=== PATIENT | female | born 1945 | race Caucasian/White ===

== ENCOUNTER 2023-01-28 05:26 | Day surgery (SDC) | payer OTHER ==
[2023-01-24 11:35] VITALS: BMI 24.6
[2023-01-28] MEDS ORDERED: FENTANYL CITRATE/PF 50 MCG/ML VIAL ONE ×2 (09:20→10:41)
[2023-01-28] MEDS ORDERED: SUCCINYLCHOLINE CHLORIDE 200 MG/10 ML SYRINGE ONE (09:20)
[2023-01-28] MEDS ORDERED: PROPOFOL 40 ML ONE (09:20)
[2023-01-28] MEDS ORDERED: MIDAZOLAM HCL 2 MG/2 ML SINGLE DOSE VIAL ONE (09:21)
[2023-01-28] MEDS ORDERED: LIDOCAINE HCL/PF 2% SDV 5ML VIAL ONE (09:37)
[2023-01-28] MEDS ORDERED: DEXAMETHASONE SOD PHOSPHATE 4 MG/1 ML VIAL ONE (09:37)
[2023-01-28] MEDS ORDERED: ONDANSETRON 4 MG/2 ML VIAL ONE (09:37)
[2023-01-28] MEDS ORDERED: KETOROLAC TROMETHAMINE 30 MG/1 ML VIAL ONE (09:37)
[2023-01-28] MEDS ORDERED: ceFAZolin SODIUM 1 GM VIAL ONE (09:47)
[2023-01-28] MEDS ORDERED: SEVOFLURANE 250 ML BTL ONE ×2 (10:05→10:06)
[2023-01-28] MEDS ORDERED: ACETAMINOPHEN 1000 MG/100 ML BAG IVPB PRN (10:31)
[2023-01-28] MEDS ORDERED: oxyCODONE HCL 5 MG TABLET PO PRN ×2 (10:31)
[2023-01-28] MEDS ORDERED: ONDANSETRON 4 MG/2 ML VIAL IVPUSH PRN (10:31)
[2023-01-28] MEDS ORDERED: PROMETHAZINE HCL 25 MG/1 ML VIAL IVPB PRN (10:31)
[2023-01-28] MEDS ORDERED: LACTATED RINGERS SOLUTION 1,000 ML IV SCH (10:45)
[2023-01-28 12:08] VITALS: RESP 18; TEMP 97
[2023-01-28 13:07] VITALS: BP 136/76
[2023-01-28 13:08] VITALS: PULSE 84
== END 2023-01-28 13:00 | disposition home or self-care (01) ==
LOC: JASU-SURG 05:26
PROVIDERS: ATTEND Obstetrics & Gynecology
PROC: 0UB98ZZ Excision of Uterus, Via Natural or Artificial Opening Endoscopic (ICD-10-PCS; principal; 2023-01-28 09:00)
DX: N95.0 Postmenopausal bleeding (principal); N84.0 Polyp of corpus uteri
CPT/HCPCS: 86850; 86900; 86901; 88305-TC; 94760